=== PATIENT | female | born 1990 | race American Indian/Alaskan Native ===

== ENCOUNTER 2018-08-17 09:52 | Emergency (ER) | payer MEDICAID ==
[2018-08-17 10:16] LABS: Basophils # (Auto) 0.1 K/mm3 (0.0-0.1); Basophils % (Auto) 1.2 % (0.0-1.8); Eosinophils # (Auto) 0.2 K/mm3 (0.0-0.4); Eosinophils % (Auto) 2.7 % (0.0-4.3); Hematocrit 32.1 % (30.3-42.9); Hemoglobin 11.1 gm/dl (10.1-14.3); Lymphocytes # (Auto) 1.7 K/mm3 (1.2-5.4); Lymphocytes % (Auto) 22.7 % (13.4-35.0); Mean Corpuscular HGB Conc 35 % (30-34); Mean Corpuscular Volume 83 fl (79-97); Monocytes # (Auto) 0.4 K/mm3 (0.0-0.8); Monocytes % (Auto) 4.9 % (0.0-7.3); Platelet Count 248 K/mm3 (140-440); Red Blood Count 3.89 M/mm3 (3.65-5.03); Red Cell Distribution Width 14.2 % (13.2-15.2)
--- NOTE | 2018-08-17 10:30 | Emergency Department Report ---
HPI - General Chief Complaint: Vaginal Bleeding Time Seen by Provider: 08/17/18 10:21 - HPI HPI: Room 7 The patient is 27-year-old female presenting with a chief complaint vaginal bleeding. Patient states she is approximately 17 weeks yesterday developed some vaginal spotting. The patient states she went to see her [employer]INEER and they told her to return if she developed heavier bleeding. This morning upon awakening the patient states she had lower abdominal cramping and heavier vaginal bleeding including passage of blood clots. There is no recent trauma or intercourse. Patient denies history of fever Location: Genitourinary system Duration: [See above] Quality: Cramping Severity: Moderate Modifying factors: [see above] Context: [see above] Mode of transportation: [not driving] ED Past Medical Hx - Past Medical History Previous Medical History?: No - Surgical History Additional Surgical History: hernia rep - Family History Family history: no significant - Social History Smoking Status: Never Smoker Substance Use Type: None ED Review of Systems ROS: Stated complaint: ISSUES/BLOOD CLOTS IN URINE Other details as noted in HPI Constitutional: denies: fever Eyes: denies: eye pain ENT: denies: throat pain Respiratory: no symptoms reported Cardiovascular: denies: chest pain Endocrine: no symptoms reported Gastrointestinal: abdominal pain Genitourinary: abnormal menses Musculoskeletal: denies: back pain Neurological: denies: headache Physical Exam - Physical Exam Vital Signs: Vital Signs 08/17/18 09:55 Temperature 98.4 F Pulse Rate 88 Respiratory 16 Rate Blood Pressure 132/76 O2 Sat by Pulse 100 Oximetry Physical Exam: GENERAL: The patient is well-developed well-nourished female lying on stretcher not appearing to be in acute distress. [] HEENT: Normocephalic. Atraumatic. Extraocular motions are intact. Patient has moist mucous membranes. NECK: Supple. Trachea midline CHEST/LUNGS: Clear to auscultation. There is no respiratory distress noted. HEART/CARDIOVASCULAR: Regular. There is no tachycardia. There is no gallop rub or murmur. ABDOMEN: Abdomen is soft, with mild discomfort to palpation in the right pelvis. Patient has normal bowel sounds. There is no abdominal distention. SKIN: There is no rash. There is no edema. There is no diaphoresis. NEURO: The patient is awake, alert, and oriented. The patient is cooperative. The patient has normal speech MUSCULOSKELETAL: There is no evidence of acute injury. ED Course Vital Signs 08/17/18 09:55 Temperature 98.4 F Pulse Rate 88 Respiratory 16 Rate Blood Pressure 132/76 O2 Sat by Pulse 100 Oximetry ED Medical Decision Making - Lab Data Result diagrams: 08/17/18 10:05 Laboratory Tests 08/17/18 08/17/18 08/17/18 10:05 10:05 10:26 WBC 7.3 RBC 3.89 Hgb 11.1 Hct 32.1 MCV 83 MCH 29 MCHC 35 H RDW 14.2 Plt Count 248 Lymph % (Auto) 22.7 [place] % (Auto) 4.9 Eos % (Auto) 2.7 Baso % (Auto) 1.2 Lymph # 1.7 [place] # 0.4 Eos # 0.2 Baso # 0.1 Seg Neutrophils % 68.5 Seg Neutrophils # 5.0 HCG, Quant 14422 H Blood Type A POSITIVE Ord Rhogam Gestat Weeks Rh pos - Radiology Data Radiology results: report reviewed (pelvic ultrasound), image reviewed (pelvic ultrasound) [address] [address] Ultrasound Report Signed Patient: LINH WETZEL MR#: [id number] : 1990 Acct:[id number] Age/Sex: 27 / F ADM Date: 08/17/18 Loc: ED Attending Dr: Ordering Physician: BEL TEMPLETON MD Date of Service: 08/17/18 Procedure(s): US OB >= 14 weeks Fetus Accession Number(s): [id number] cc: BEL TEMPLETON MD PROCEDURE: US OB >= 14 WEEKS FETUS HISTORY: 17 wks vaginal bleeding FINDINGS: Real-time ultrasound of the pelvis was performed with attention to the gravid uterus. There is a single live intrauterine gestation with biparietal diameter of 3.9 cm which corresponds to 17 weeks and 5 days. Head circumference is 14.3 cm which corresponds to 17 weeks and 4 days. Abdominal circumference was 12.0 cm which corresponds to 17 weeks and 5 days. Femur length is 2.7 cm which corresponds to 18 weeks and 2 days. Amniotic fluid index was not measured. Deepest fluid pocket is 5.5 cm. The amount of amniotic fluid appears subjectively normal. There is an anterior grade 0 placenta. cardiac activity is present at 158 beats per minute. The fetus lies in cephalic lie. Cervical length was 3.3 cm. IMPRESSION: Live intrauterine gestation with average ultrasound age of 17 weeks and 6 days. Estimated date of delivery is January 19, 2019 This document is electronically signed by Jordan Castaneda MD., August 17 2018 12:44:16 PM ET Transcribed By: SILAS Dictated By: JORDAN CASTANEDA MD Electronically Authenticated By: JORDAN CASTANEDA MD Signed Date/Time: 08/17/18 1246 DD/ 1234 TD/TT: 08/17/18 1234 - Medical Decision Making Patient advised to undergo bedrest and pelvic rest until cleared by her [employer] SOFTWARE ENGINEER - Differential Diagnosis threatened , incomplete , Critical care attestation.: If time is entered above; I have spent that time in minutes in the direct care of this critically ill patient, excluding procedure time. ED Disposition Clinical Impression: Threatened Disposition: DC-01 TO HOME OR SELFCARE Is pt being admited?: No Does the pt Need Aspirin: No Condition: Stable Instructions: Threatened Miscarriage (ED) Additional Instructions: Return to the emergency department immediately should you develop worsening symptoms, fever, inability to tolerate food or liquid or any other concerns. Referrals: JAYSHREE CLARK NP [Primary Care Provider] - 3-5 Days [facility] [Provider Group] - [facility] Time of Disposition: 13:00
--- NOTE | 2018-08-17 12:46 | Ultrasound Report ---
PROCEDURE: US OB >= 14 WEEKS FETUS HISTORY: 17 wks vaginal bleeding FINDINGS: Real-time ultrasound of the pelvis was performed with attention to the gravid uterus. There is a single live intrauterine gestation with biparietal diameter of 3.9 cm which corresponds to 17 weeks and 5 days. Head circumference is 14.3 cm which corresponds to 17 weeks and 4 days. Abdominal circumference was 12.0 cm which corresponds to 17 weeks and 5 days. Femur length is 2.7 cm which corresponds to 18 weeks and 2 days. Amniotic fluid index was not measured. Deepest fluid pocket is 5.5 cm. The amount of amniotic fluid a ppears subjectively normal. There is an anterior grade 0 placenta. cardiac activity is present at 158 beats per minute. The fetus lies in cephalic lie. Cervical length was 3.3 cm. IMPRESSION: Live intrauterine gestation with average ultrasound age of 17 weeks and 6 days. Estimated date of delivery is January 19, 2019 This document is electronically signed by Jordan Castaneda MD., August 17 2018 12:44:16 PM ET
[2018-08-17 13:23] VITALS: BP 130/71
== END 2018-08-17 13:23 | disposition home or self-care (01) ==
LOC: ED 09:52
DX: O20.0 Threatened abortion (principal); Z3A.17 17 weeks gestation of pregnancy; Z91.013 Allergy to seafood
CPT/HCPCS: 36415; 76805; 84702; 85025; 86900; 86901